=== PATIENT | female | born 1990 | race African-American/Black ===

== ENCOUNTER 2020-03-27 01:34 | Emergency (ER) | payer MEDICAID, OTHER ==
[~2020-03-27] VITALS: Ht 167.6 cm; Wt 49.9 kg
[2020-03-27 01:54] VITALS: BP 99/73
== END 2020-03-27 07:26 | disposition left against medical advice (07) ==
LOC: ER 01:37
DX: M25.531 Pain in right wrist (principal); M25.521 Pain in right elbow; Z53.21 Procedure and treatment not carried out due to patient leaving prior to being seen by health care provider; V43.62XA Car passenger injured in collision with other type car in traffic accident, initial encounter; Y93.89 Activity, other specified; Y92.89 Other specified places as the place of occurrence of the external cause; Y99.8 Other external cause status
CPT/HCPCS: 73070; 73110

== ENCOUNTER → 2025-02-13 | Emergency (ER) | payer MEDICAID | END | disposition left against medical advice (07) | LOC: ER 02:38 | DX: R10.12 Left upper quadrant pain (principal); R10.32 Left lower quadrant pain; Z53.21 Procedure and treatment not carried out due to patient leaving prior to being seen by health care provider ==